=== PATIENT | male | born 1955 | race Caucasian/White ===

== ENCOUNTER 2023-04-16 14:03 | Emergency (ER) | payer MEDICARE ==
[2023-04-16 14:23] VITALS: BP 153/59; PULSE 48
[2023-04-16 15:20] LABS: BASOPHILS ABSOLUTE AUTO 0.03 K/uL (0.00-0.10); BASOPHILS PERCENT AUTO 0.5 % (0.1-1.3); EOSINOPHILS ABSOLUTE AUTO 0.12 K/uL (0.00-0.40); EOSINOPHILS PERCENT AUTO 1.9 % (0.0-5.4); HEMATOCRIT 36.6 % (38.4-49.7); HEMOGLOBIN 12.6 g/dL (12.9-16.9); IMMATURE GRAN ABSOLUTE AUTO 0.01 K/uL (0.00-0.23); IMMATURE GRAN PERCENT AUTO 0.2 % (0.0-0.7); LYMPHOCYTES ABSOLUTE AUTO 2.24 K/uL (0.8-3.3); MEAN CORPUSCULAR HEMOGLOBIN 30.9 pg (31.6-35.5); MEAN CORPUSCULAR HGB CONC 34.4 g/dL (31.6-35.5); MEAN CORPUSCULAR VOLUME 89.7 fL (81.4-99.0); MONOCYTES ABSOLUTE AUTO 0.66 K/uL (0.20-0.90); MONOCYTES PERCENT AUTO 10.6 % (3.3-12.6); NEUTROPHILS ABSOLUTE AUTO 3.16 K/uL (1.0-7.6); NEUTROPHILS PERCENT AUTO 50.8 % (40.0-78.1); PLATELET COUNT,PLT 192 K/uL (130-375); RED BLOOD CELL COUNT 4.08 M/uL (4.14-5.76); WHITE BLOOD CELL COUNT,WBC 6.2 K/uL (3.2-11.0)
[2023-04-16 15:43] LABS: CALCIUM 8.4 mg/dL (8.5-10.1); CREATININE 0.9 mg/dL (0.8-1.3); EST CRCL DRUG DOSING (CG) 82.5 mL/min; MAGNESIUM 2.1 mg/dL (1.8-2.4); POTASSIUM,K 4.1 mmol/L (3.6-5.2); TROPONIN I HIGH SENSITIVITY 24.6 pg/mL (<=60.3)
[2023-04-16 15:50] LABS: ANION GAP 11.1 mmol/L (5.0-14.0)
== END 2023-04-16 17:26 | disposition home or self-care (01) ==
LOC: JP.ED 14:03
DX: I44.0 Atrioventricular block, first degree (principal); R00.1 Bradycardia, unspecified; I49.49 Other premature depolarization
CPT/HCPCS: 36415; 71045; 71045-26; 80048; 83735; 84484; 85025; 93005; 99284